=== PATIENT | male | born 1960 | race Caucasian/White ===

== ENCOUNTER 2019-11-26 05:52 | Day surgery (SDC) | payer BC ==
[~2019-11-26] VITALS: Ht 167.6 cm; Wt 74.8 kg
[~2019-11-26 05:52] MED LIST: ASA81BEC PO; GLUCOPHAGE1000 MG PO; LISINOPRIL10 MG PO
[2019-11-26 07:00] VITALS: BP 129/73
--- NOTE | 2019-11-28 07:09 | PATH ---
[facility] [address] [place] [address] PATHOLOGY RPT PROCEDURE Name: GONZALO WINKLER Room #: DEP [facility]..#: [id number] Admission: 11/26/19 Date of : 60 Discharge: 11/26/19 Report #: [id number] Path Case #: [id number] [facility] Accession Number: [id number] . 01 Material submitted: . brow - LEFT UPPER LID AND BROW. Modifiers: upper, left . 01 Clinical history: . Lesion left upper lid. . 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 - Actinic keratosis with solar elastosis. - There is no evidence of atypia or malignancy and all surgical resection margins are free. (SHA:[facility] 11/27/2019) QTP 11/27/2019 1458 Local . 02 Electronically signed: . Jv Alex MD, Pathologist NPI- [id number] . 01 Gross description: . Received in formalin labeled "Strong, Gonzalo, lesion left upper lid and brow" is an unoriented ellipse of skin measuring 2.4 x 1.1 x 0.7 cm. The skin surface is france-white without a visible lesion. The margin is inked and the specimen is sectioned into 8 pieces. The specimen is submitted entirely in A1-A2, with the tips in the last cassette. ([facility]; 11/26/2019) [facility] 11/26/2019 1545 Local . 02 Pathologist provided ICD-10: L98.9, L57.0, L57.8 . 02 CPT . 800886 Specimen Comment: A courtesy copy of this report has been sent to [phone] Specimen Comment: Report sent to Performed at: [address] [id number] MD Alexy Shankar MD Phone: [phone] Performed at: [address] [id number] MD Agata Holden MD Phone: [phone]
--- NOTE | 2019-11-30 06:19 | O ---
[facility] [place] [address] OPERATIVE REPORT Name: SUDHEER WINKLER Room #: DEP [facility]#: [id number] Admission: 11/26/19 Attend Phys: Eliel Durant MD Discharge: 11/26/19 Date of : 60 Report #: [id number] THIS REPORT FOR: cc: Froy Rodriguez Justin S. DO White, William L. MD ~ CC: Froy Durant DATE OF SERVICE: 11/26/2019 PREOPERATIVE DIAGNOSIS: Lesion of left upper lid and brow. POSTOPERATIVE DIAGNOSIS: Lesion of left upper lid and brow. PROCEDURE: Excision of left upper lid and brow with myocutaneous flap repair of defect. SURGEON: Eliel Durant MD. FUDGE CANDY [employer]KER: None. ANESTHESIA: MAC. COMPLICATIONS: None. INDICATIONS FOR SURGERY: This pleasant 59-year-old gentleman was recently hospitalized for a left orbital cellulitis that appeared to be originating from his lateral left upper lid and brow. This is thought to most likely be a dermal associated process, but unfortunately is deep in the dermis and involves the orbit. He has completed antibiotics and presents today for excision of the residual mass, presuming that he is no longer infectious, but his risk of recurrence is high if the lesion is left alone. Informed consent was obtained today to include, but not limited to the potential risk for loss of vision, bleeding, infection, failure to improve the problem, and the potential need for further surgery or treatment. DESCRIPTION OF PROCEDURE: The patient was taken to the operating room where 2% Xylocaine with epinephrine mixed with equal parts of 0.75% Marcaine with Wydase was administered transcutaneously in the left upper lid, the brow, and the infratemporal fossa. The patient was subsequently prepped and draped in the usual sterile fashion. The mass was palpated and then outlined with a fine tip skin marking pen. An incision was then made with a 15C blade, excising outside of the previously made line to ensure that the entire lesion was removed. The [address] [address] OPERATIVE REPORT Name: SUDHEER WINKLER Room #: DEP [facility] M.R.#: [id number] Admission: 11/26/19 Attend Phys: Eliel Durant MD Discharge: 11/26/19 Date of : 60 Report #: [id number] initial incision went down all the way through the brow and down to periosteum. More superiorly, it was down to the frontalis muscle. In the left upper lid, it went down to the orbital septum. It did not appear to extend at this point in time deeper than the septum. The deeper dissection was then accomplished with a Aleta scissor. The mass was then excised en-bloc. Hemostasis was achieved with diligent pinpoint monopolar cautery. A myocutaneous flap was then developed laterally from the infratemporal fossa and rotated back into the defect. Hemostasis was re-achieved. The flap was secured with multiple interrupted deep 6-0 Vicryl sutures. The subcutaneous structures and the skin were then closed with interrupted 6-0 chromic sutures. The final closure was oriented in an oblique fashion in order to limit his risk for lid retraction. The wound was then cleaned and dressed with erythromycin ophthalmic ointment. The patient subsequently transported to the recovery area having tolerated the procedure well with no anesthetic or operative complications being noted. <ELECTRONICALLY SIGNED> By: Eliel Durant MD 11/30/19 0619 0741 [id number] Eliel Durant MD /nt
== END 2019-11-26 08:35 | disposition home or self-care (01) ==
LOC: OR 05:52 → TBA 05:52 → OR 08:35
DX: L57.0 Actinic keratosis (principal); L57.8 Other skin changes due to chronic exposure to nonionizing radiation; L98.9 Disorder of the skin and subcutaneous tissue, unspecified; I10 Essential (primary) hypertension; E11.9 Type 2 diabetes mellitus without complications; K21.9 Gastro-esophageal reflux disease without esophagitis; G47.30 Sleep apnea, unspecified; Z98.890 Other specified postprocedural states; Z79.899 Other long term (current) drug therapy; Z87.891 Personal history of nicotine dependence; Z90.49 Acquired absence of other specified parts of digestive tract; Z79.82 Long term (current) use of aspirin
CPT/HCPCS: 50010; 50101; 50386; 50398; 51636; 56528; 56531; 62110; 62850; 70005